=== PATIENT | male | born 2000 | race Hispanic/Latino ===

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

== ENCOUNTER 2023-01-27 10:28 | Emergency (ER) | payer OTHER ==
[2023-01-27] MEDS ORDERED: Lidocaine 1% PF 5 ML VIAL ONE (13:54)
== END 2023-01-27 15:05 | disposition home or self-care (01) ==
LOC: ERS 10:28
DX: L60.0 Ingrowing nail (principal); L03.032 Cellulitis of left toe
CPT/HCPCS: 11730